=== PATIENT | male | born 1980 | race Hispanic/Latino ===

== ENCOUNTER 2018-06-11 20:45 | Emergency (ER) | payer SELFPAY ==
[2018-06-11 21:10] VITALS: BP 135/87
== END 2018-06-11 22:17 | disposition left against medical advice (07) ==
LOC: ED 20:45
DX: R51 Headache (principal); Z53.21 Procedure and treatment not carried out due to patient leaving prior to being seen by health care provider

== ENCOUNTER 2019-05-25 13:45 | Emergency (ER) | payer OTHER ==
--- NOTE | 2019-05-25 14:22 | Event Note ---
ED Screening Note ED Screening Note: 2nd degree to the burn to the right thumb happened two days ago states it formed a blister and he popped it himself was grilling out This initial assessment/diagnostic orders/clinical plan/treatment(s) is/are subject to change based on patients health status, clinical progression and re- assessment by fellow clinical providers in the ED. Further treatment and workup at subsequent clinical providers discretion. Patient/guardian urged not to elope from the ED as their condition may be serious if not clinically assessed and managed. needs abx ointment and wrapped possible oral abx due to patient popping the blister himself
[2019-05-25] MEDS ORDERED: BOOSTRIX IM ONE (15:02)
--- NOTE | 2019-05-25 15:02 | Emergency Department Report ---
Burn HPI - History Stated Complaint: BURN ON THUMB Chief Complaint: Burn/Smoke Inhalation Time Seen by Provider: 05/25/19 14:18 Duration of Burn: 2 Days Burn Location: Other (left thumb) Symptoms:: Yes Blistering, Yes Able to Tolerate Fluids, No Malaise, No Myalgias, No Fever, No Vomiting Other History: 38-year-old male presents to the emergency room complaining of a burn to the left arm with blistering that happened Saturday. Patient reports that he popped the blister. He denies any pain or swelling. - Home Meds and Allergies Home Medications: Previous Rx's Medication Instructions Recorded Last Taken Type Naproxen [Naprosyn TAB] 500 mg PO BID #20 tablet 12/20/14 Unknown Rx Allergies/Adverse Reactions: Allergies Allergy/AdvReac Type Severity Reaction Status Date / Time No Known Allergies Allergy Verified 06/11/18 21:04 ED Review of Systems ROS: Stated complaint: BURN ON THUMB Other details as noted in HPI Comment: All other systems reviewed and negative Constitutional: denies: chills, fever Eyes: denies: eye pain, eye discharge, vision change ENT: denies: ear pain, throat pain Skin: other ED Past Medical Hx - Past Medical History Previous Medical History?: No - Surgical History Past Surgical History?: No - Social History Smoking Status: Never Smoker Substance Use Type: Alcohol - Medications Home Medications: Home Medications Medication Instructions Recorded Confirmed Last Taken Type Naproxen [Naprosyn TAB] 500 mg PO BID #20 tablet 12/20/14 Unknown Rx Exam - Exam General: Vital signs noted. No distress. Alert and acting appropriately. ED Course Vital Signs 05/25/19 14:18 Temperature 98.2 F Pulse Rate 105 H Respiratory 18 Rate Blood Pressure 134/94 O2 Sat by Pulse 96 Oximetry ED Medical Decision Making - Medical Decision Making 38-year-old male comes in for second degree burn to the left thumb while grilling on Saturday. Patient's thumb is not erythematous nonerythematous nontender to palpate. I discussed the patient to keep the wound clean and apply Band-Aid Kacey wash it twice a day with good soap and water. He needs to work outside in the yard to wear gardening gloves. Patient to follow up with the primary care provider if he has any further concerns. Critical care attestation.: If time is entered above; I have spent that time in minutes in the direct care of this critically ill patient, excluding procedure time. ED Disposition Clinical Impression: Second degree burn of left thumb Qualifiers: Encounter type: initial encounter Qualified Code(s): T23.212A - Burn of second degree of left thumb (nail), initial encounter Disposition: - TO HOME OR SELFCARE Is pt being admited?: No Does the pt Need Aspirin: No Condition: Stable Instructions: Partial Thickness Burn (ED) Additional Instructions: Keep wound clean and dry cover with Band-Aids when out working in the yard where. Gloves. He is willing becomes red and swollen with any drainage to follow up with his primary care provider or return back to the emergency room. Referrals: Your,Provider [Other] - 3-5 Days
[2019-05-25 15:31] VITALS: BP 130/86
== END 2019-05-25 15:21 | disposition home or self-care (01) ==
LOC: ED 13:45
DX: T23.212A Burn of second degree of left thumb (nail), initial encounter (principal); X11.8XXA Contact with other hot tap-water, initial encounter; Y93.89 Activity, other specified; Y92.89 Other specified places as the place of occurrence of the external cause; Y99.8 Other external cause status
CPT/HCPCS: 90471; 90715

== ENCOUNTER 2019-11-12 06:57 | Emergency (ER) | payer BC, OTHER ==
--- NOTE | 2019-11-12 09:13 | Emergency Department Report ---
HPI - General Chief Complaint: Headache Time Seen by Provider: 11/12/19 08:48 - HPI HPI: Room 39 The patient is a 39-year-old male presenting with a chief complaint of headache. Patient states he's had a left frontal headache for the past 5 days. Patient denies any preceding trauma. Patient denies history of fever nausea or vomiting. Patient states his headache has been intermittent. Patient currently gets his headache a score of 8/10. Patient admits to rhinorrhea for 3-to 4 weeks. Location: [See above] Duration: [See above] Quality: [See above] Severity: [See above] Timing: [See above] Context: [See above] Modifying factors: [See above] Associated signs and symptoms: [see above] ED Past Medical Hx - Past Medical History Previous Medical History?: No - Surgical History Past Surgical History?: No - Family History Family history: no significant - Social History Smoking Status: Current Every Day Smoker (1 pack per day) Substance Use Type: None (denies illicit drug use), Alcohol (occasional) - Medications Home Medications: Home Medications Medication Instructions Recorded Confirmed Last Taken Type Naproxen [Naprosyn TAB] 500 mg PO BID #20 tablet 12/20/14 Unknown Rx Azithromycin [Zithromax Z-JUDIE] 0 mg PO DAILY #6 tab 11/12/19 Unknown Rx HYDROcodone/APAP 5-325 [Harrison 1 - 2 each PO Q6HR PRN #10 tablet 11/12/19 Unknown Rx 5/325] Ibuprofen [Motrin 800 MG tab] 800 mg PO Q8HR PRN #20 tablet 11/12/19 Unknown Rx ED Review of Systems ROS: Stated complaint: MIGRAINE Other details as noted in HPI Constitutional: denies: fever Eyes: denies: eye pain ENT: denies: throat pain Respiratory: no symptoms reported Cardiovascular: denies: chest pain Endocrine: no symptoms reported Gastrointestinal: denies: abdominal pain, nausea, vomiting Genitourinary: denies: dysuria Musculoskeletal: denies: back pain Neurological: headache Physical Exam - Physical Exam Vital Signs: Vital Signs 11/12/19 07:25 Temperature 98.2 F Pulse Rate 84 Respiratory 18 Rate Blood Pressure 145/89 O2 Sat by Pulse 98 Oximetry Physical Exam: GENERAL: The patient is well-developed well-nourished male lying on stretcher not appearing to be in acute distress. [] HEENT: Normocephalic. Atraumatic. Extraocular motions are intact. Patient has moist mucous membranes. NECK: Supple. No meningitic signs are noted. There is no nuchal rigidity CHEST/LUNGS: There is no respiratory distress noted. HEART/CARDIOVASCULAR: Regular. There is no tachycardia. There is no gallop rub or murmur. SKIN: There is no rash. There is no edema. There is no diaphoresis. NEURO: The patient is awake, alert, and oriented. The patient is cooperative. The patient has no focal neurologic deficits. The patient has normal speech. Cranial nerves II through XII grossly intact, no drift MUSCULOSKELETAL: There is no evidence of acute injury. ED Course Vital Signs 11/12/19 07:25 Temperature 98.2 F Pulse Rate 84 Respiratory 18 Rate Blood Pressure 145/89 O2 Sat by Pulse 98 Oximetry ED Medical Decision Making - Radiology Data Radiology results: report reviewed (CT head), image reviewed (CT head) [place] [id number] Cat Scan Report Signed Patient: UBALDO INFANTE JR MR#: [id number] : 1980 Acct:[id number] Age/Sex: 39 / M ADM Date: 11/12/19 Loc: ED Attending Dr: Ordering Physician: TOMER CHAMBERS MD Date of Service: 11/12/19 Procedure(s): CT head/brain wo con Accession Number(s): [id number] cc: TOMER CHAMBERS MD CT HEAD WITHOUT CONTRAST INDICATION / CLINICAL INFORMATION: Headache for 4 days. TECHNIQUE: Axial imaging performed from the skull apex through the skull base without the use of contrast. Sagittal and coronal reformatted images. All CT scans at this location are performed us ing CT dose reduction [facility] by means of automated exposure control. COMPARISON: None available. FINDINGS: CEREBRAL PARENCHYMA: No significant abnormality. No acute territorial infarct. HEMORRHAGE: None. EXTRA-AXIAL SPACES: Normal in size and morphology for the patient's age. VENTRICULAR SYSTEM: Normal in size and morphology for the patient's age. MIDLINE SHIFT OR HERNIATION: None. CEREBELLUM / BRAINSTEM: No significant abnormality. CALVARIUM: No significant abnormality. ORBITS: Normal as visualized. PARANASAL SINUSES / MASTOID AIR CELLS: There is partial opacification of the left posterior ethmoid air cells. Mild mucosal thickening throughout the left sphenoid sinus. The r emaining visualized sinuses are adequately aerated. The maxillary sinuses are not included. SOFT TISSUES of HEAD: No significant abnormality. ADDITIONAL FINDINGS: None. IMPRESSION: Unremarkable CT of the brain. Sinus disease as described. Correlate for acute sinusitis. Signer Name: Ravindra Arndt Jr, MD Signed: 11/12/2019 9:30 AM Workstation Name: [id number] Transcribed By: TTR Dictated By: RAVINDRA ARNDT JR, MD Electronically Authenticated By: RAVINDRA ARNDT JR, MD Signed Date/Time: 11/12/19929 DD/ 7 TD/TT: - Differential Diagnosis headache, intracranial mass, ICH, migraines Critical care attestation.: If time is entered above; I have spent that time in minutes in the direct care of this critically ill patient, excluding procedure time. ED Disposition Clinical Impression: Headache, Sinusitis Disposition: - TO HOME OR SELFCARE Is pt being admited?: No Does the pt Need Aspirin: No Condition: Stable Instructions: Sinusitis (ED) Additional Instructions: Return to the emergency department should you develop worsening symptoms, inability to tolerate food or liquids, high fever or any other concerns Prescriptions: Ibuprofen [Motrin 800 MG tab] 800 mg PO Q8HR PRN #20 tablet PRN Reason: Pain, Moderate (4-6) HYDROcodone/APAP 5-325 [Harrison 5/325] 1 - 2 each PO Q6HR PRN #10 tablet PRN Reason: Pain Azithromycin [Zithromax Z-JUDIE] 0 mg PO DAILY #6 tab Referrals: [facility] [Outside] - 3-5 Days NADIA CHINCHILLA MD [Staff Physician] - 3-5 Days (Dr Chinchilla is an director of global talent (ear nose and throat doctor).) EDY THAKKAR MD [Staff Physician] - 3-5 Days ( is a neurologist) Time of Disposition: 09:46
--- NOTE | 2019-11-12 09:34 | Cat Scan Report ---
CT HEAD WITHOUT CONTRAST INDICATION / CLINICAL INFORMATION: Headache for 4 days. TECHNIQUE: Axial imaging performed from the skull apex through the skull base without the use of cont rast. Sagittal and coronal reformatted images. All CT scans at this location are performed using CT dose reduction for ALARA by means of automated exposure control. COMPARISON: None available. FINDINGS: CEREBRAL PARENCHYMA: No significant abnormality. No acute territorial infarct. HEMORRHAGE: None. EXTRA-AXIAL SPACES: Normal in size and morphology for the patient's age. VENTRICULAR SYSTEM: Normal in size and morphology for the patient's age. MIDLINE SHIFT OR HERNIATION: None. CEREBELLUM / BRAINSTEM: No significant abnormality. CALVARIUM: No significant abnormality. ORBITS: Normal as visualized. PARANASAL SINUSES / MASTOID AIR CELLS: There is partial opacification of the left posterior ethmoid a ir cells. Mild mucosal thickening throughout the left sphenoid sinus. The remaining visualized sinuse s are adequately aerated. The maxillary sinuses are not included. SOFT TISSUES of HEAD: No significant abnormality. ADDITIONAL FINDINGS: None. IMPRESSION: Unremarkable CT of the brain. Sinus disease as described. Correlate for acute sinusitis. Signer Name: Ravindra Arndt Jr, MD Signed: 11/12/2019 9:30 AM Workstation Name: [id number]
[2019-11-12 10:34] VITALS: BP 138/86
== END 2019-11-12 10:34 | disposition home or self-care (01) ==
LOC: ED 06:57
DX: J32.9 Chronic sinusitis, unspecified (principal); F17.200 Nicotine dependence, unspecified, uncomplicated; Z79.899 Other long term (current) drug therapy
CPT/HCPCS: 70450